=== PATIENT | female | born 1975 | race Caucasian/White ===

== ENCOUNTER 2017-10-26 10:27 | Emergency (ER) | payer BC ==
[2017-10-26 10:56] LABS: #Eosinphils 0.1 thou/uL (0.0-0.7); #Lymphocytes 0.6 thou/uL (1.20-3.40); #Monocytes 0.7 thou/uL (0.11-0.59); %Basophils 0.4 % (0.0-1.0); %Eosinophils 0.9 % (0.0-10.0); %Lymphocytes 9.1 % (21.0-51.0); %Monocytes 11.6 % (0.0-10.0); %Neutrophils 77.9 % (42.0-75.0); Hemoglobin 14.4 g/dL (12.0-16.0); Mean Corpuscular HGB CONC 33.9 g/dL (32.0-36.0); Mean Corpuscular Hemoglobin 33.5 pg (27.0-31.0); Mean Corpuscular Volume 98.8 fl (81.0-99.0); Mean Platelet Volume 7.5 fL (7.4-10.4); Platelet Count 201 thou/uL (130-400); RBC Distribution Width 11.6 % (11.5-14.5); Red Blood Cell (RBC) Count 4.31 mill/uL (4.20-5.40); White Blood Cell (WBC) Count 6.4 thou/uL (4.8-10.8)
[2017-10-26 11:26] LABS: ALT (SGPT) 179 U/L (8-55); AST (SGOT) 275 U/L (5-34); Albumin 4.1 g/dL (3.5-5.0); Alkaline Phosphatase 112 U/L (40-150); Anion Gap 12 mmol/L (10-20); BUN (Urea Nitrogen) 10 mg/dL (7.0-18.7); CK (CPK) 33 U/L (29-168); Calc. Creatinine Clearance 0 mL/min (70-130); Calcium 8.8 mg/dL (7.8-10.44); Carbon Dioxide 24 mmol/L (22-29); Chloride 102 mmol/L (98-107); Estimated GFR-MDRD 89; Globulin 2.8 g/dL (2.4-3.5); Glucose 97 mg/dL (70-105); Lipase 16 U/L (8-78); Potassium 3.8 mmol/L (3.5-5.1); Protein, Total 6.9 g/dL (6.0-8.3); Sodium 134 mmol/L (136-145)
[2017-10-26 11:29] LABS: CKMB 0.4 ng/mL (0-6.6)
--- NOTE | 2017-10-26 11:56 | RAD ---
SINGLE VIEW OF THE CHEST: COMPARISON: None. HISTORY: Headache and cough. FINDINGS: Single view of the chest shows a normal sized cardiomediastinal silhouette. There is no evidence of c onsolidation, mass, or pleural effusion. The bones are unremarkable. IMPRESSION: No evidence of acute cardiopulmonary disease. POS: [facility]
--- NOTE | 2017-10-26 12:03 | CT ---
CT OF THE BRAIN WITHOUT CONTRAST: INDICATIONS: History of syncope. Headache, congestion, and, now, productive cough. Status post fainting with fal l, hitting head. FINDINGS: There are small sebaceous cysts involving the frontal scalp and the right parietal scalp. No acute infarct, hemorrhage, or hydrocephalus present. The septum pellucidum and third ventricle ar e midline. The mastoid air cells and paranasal sinuses are clear. The skull is intact. IMPRESSION: No acute intracranial abnormality. POS: [facility]
== END 2017-10-26 13:12 | disposition home or self-care (01) ==
LOC: ERS 10:27
DX: R55 Syncope and collapse (principal); J11.1 Influenza due to unidentified influenza virus with other respiratory manifestations; I10 Essential (primary) hypertension; Z79.899 Other long term (current) drug therapy
CPT/HCPCS: 36415; 70450; 71045; 80053; 82553; 83690; 84484; 85025; 93005; 96360

== ENCOUNTER 2025-05-23 12:28 | Emergency (ER) | payer BC ==
[2025-05-23] MEDS ORDERED: Ketorolac Tromethamine 30 MG (1 mL) VIAL ONE (13:57)
[2025-05-23 16:08] LABS: #Basophils 0.07 10x3/uL (0.0-0.2); #Eosinophils 0.54 10x3/uL (0.0-0.7); #Monocytes 0.68 10x3/uL (0.11-0.59); #Neutrophils 3.19 10x3/uL (1.40-6.50); %Basophils 1.0 % (0.0-1.0); %Eosinophils 7.8 % (0.0-10.0); %Lymphocytes 34.6 % (21.0-51.0); %Monocytes 9.9 % (0.0-10.0); %Neutrophils 46.4 % (42.0-75.0); Hematocrit 43.4 % (36.0-47.0); Hemoglobin 15.0 g/dL (12.0-16.0); Mean Corpuscular Hemoglobin 32.3 pg (27.0-31.0); Mean Corpuscular Volume 93.3 fL (78.0-98.0); Platelet Count 267 10x3/uL (130-400); Red Blood Cell (RBC) Count 4.65 mill/uL (4.20-5.40); White Blood Cell (WBC) Count 6.88 10x3/uL (4.8-10.8)
[2025-05-23 16:32] LABS: ALT (SGPT) 21 U/L (Less than 34); AST (SGOT) 33 U/L (11-34); Albumin 4.3 g/dL (3.1-4.5); Alkaline Phosphatase 75 U/L (40-110); Anion Gap 13 mmol/L (10-20); BUN (Urea Nitrogen) 12 mg/dL (7.0-18.7); Bilirubin, Total 1.1 mg/dL (0.3-1.2); Calc. Creatinine Clearance 0 mL/min (70-130); Calcium 9.8 mg/dL (7.8-10.44); Carbon Dioxide 27 mmol/L (22-29); Chloride 103 mmol/L (98-107); Globulin 3.1 g/dL (2.4-3.5); Glucose 87 mg/dL (70-105); Potassium 3.9 mmol/L (3.5-5.1); Sodium 139 mmol/L (136-145)
== END 2025-05-23 17:02 | disposition home or self-care (01) ==
LOC: ERS 12:28
DX: M79.604 Pain in right leg (principal); I10 Essential (primary) hypertension; Z79.899 Other long term (current) drug therapy
CPT/HCPCS: 36415; 80053; 82728; 85025; 85379; 96372; J1885